=== PATIENT | female | born 1945 ===

== ENCOUNTER 2021-06-03 14:14 | Emergency (ER) | payer MEDICARE ==
[~2021-06-03] VITALS: Ht 165 cm; Wt 72.6 kg
[2021-06-03] MEDS ORDERED: LACTATED RINGERS 1,000 ML IV SCH (14:30)
--- NOTE | 2021-06-03 14:35 | ED General ---
General Stated Complaint: WEAKNESS,DIZZINESS Source of Information: Patient Exam Limitations: No Limitations History of Present Illness Date Seen by Provider: Jun 03, 2021 Time Seen by Provider: 14:14 Initial Comments To ER by [facility] from [facility] where she was out when she developed diarrhea, crampy abdominal pain and lightheadedness. She was helped to the floor by others on scene. No fevers or chills. She has a history of colitis. 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 She denies any pain or fevers. She only had one episode of diarrhea and it was nonbloody. She states that it will probably become bloody with future episodes as it typically does. She does not have any known stenting to the SMA or AUGUSTINE. She is from [facility] and primary care is Dr. Alvarez out of the [facility] in [place]. Timing/Duration: 1-2 Days Severity: Moderate Allergies and Home Medications Allergies Coded Allergies: No Known Drug Allergies (Unverified , 06/03/21) Patient Home Medication List Home Medication List Reviewed: Yes Review of Systems Review of Systems Constitutional: see HPI EENTM: see HPI Respiratory: no symptoms reported Cardiovascular: no symptoms reported Genitourinary: no symptoms reported Musculoskeletal: no symptoms reported Skin: no symptoms reported Psychiatric/Neurological: No Symptoms Reported Hematologic/Lymphatic: No Symptoms Reported Physical Exam Vital Signs Vital Signs - First Documented 06/03/21 14:16 Temp 35.4 Pulse 58 Resp 18 B/P (MAP) 96/62 (73) Pulse Ox 95 O2 Delivery Room Air Capillary Refill : Height, Weight, BMI Height: '" Weight: lbs. oz. kg; BMI Method: General Appearance: No Apparent Distress, WD/WN, Other (Alert and oriented no distress blood pressure 96/62. Abdomen is nontender with hypoactive bowel sounds. When asked if she has abdominal pain she states "it is just a little uneasy".) Eyes: Bilateral Eye Normal Inspection, Bilateral Eye PERRL, Bilateral Eye EOMI Neck: Full Range of Motion, Normal Inspection Respiratory: Lungs Clear, Normal Breath Sounds, No Accessory Muscle Use, No Respiratory Distress Cardiovascular: Regular Rate, Rhythm, Normal Peripheral Pulses Gastrointestinal: Normal Bowel Sounds, Non Tender, Soft Extremity: Normal Capillary Refill, Normal Inspection Neurologic/Psychiatric: Alert, Oriented x3 Skin: Normal Color, Warm/Dry Focused Exam Lactate Level 06/03/21 14:27: Lactic Acid Level 2.16*H Lactic Acid Level Laboratory Tests Test 06/03/21 14:27 Lactic Acid Level 2.16 MMOL/L (0.50-2.00) *H Progress/Results/Core Measures Suspected Sepsis SIRS Temperature: Pulse: Respiratory Rate: Laboratory Tests 06/03/21 14:27: White Blood Count 6.2 Blood Pressure / Mean: 06/03/21 14:27: Lactic Acid Level 2.16*H Laboratory Tests 06/03/21 14:27: Creatinine 1.03, Platelet Count 324, Total Bilirubin 0.6 Results/Orders Lab Results Laboratory Tests Test 06/03/21 14:27 Range/Units White Blood Count 6.2 4.3-11.0 10^3/uL Red Blood Count 4.09 3.80-5.11 10^6/uL Hemoglobin 13.0 11.5-16.0 g/dL Hematocrit 38 35-52 % Mean Corpuscular Volume 94 80-99 fL Mean Corpuscular Hemoglobin 32 25-34 pg Mean Corpuscular Hemoglobin Concent 34 32-36 g/dL Red Cell Distribution Width 12.1 10.0-14.5 % Platelet Count 324 130-400 10^3/uL Mean Platelet Volume 8.5 L 9.0-12.2 fL Immature Granulocyte % (Auto) 0 % Neutrophils (%) (Auto) 59 42-75 % Lymphocytes (%) (Auto) 28 12-44 % Monocytes (%) (Auto) 9 0-12 % Eosinophils (%) (Auto) 3 0-10 % Basophils (%) (Auto) 1 0-10 % Neutrophils # (Auto) 3.7 1.8-7.8 10^3/uL Lymphocytes # (Auto) 1.8 1.0-4.0 10^3/uL Monocytes # (Auto) 0.6 0.0-1.0 10^3/uL Eosinophils # (Auto) 0.2 0.0-0.3 10^3/uL Basophils # (Auto) 0.0 0.0-0.1 10^3/uL Immature Granulocyte # (Auto) 0.0 0.0-0.1 10^3/uL Sodium Level 131 L 135-145 MMOL/L Potassium Level 3.4 L 3.6-5.0 MMOL/L Chloride Level 97 L 98-107 MMOL/L Carbon Dioxide Level 19 L 21-32 MMOL/L Anion Gap 15 H 5-14 MMOL/L Blood Urea Nitrogen 11 7-18 MG/DL Creatinine 1.03 0.60-1.30 MG/DL Estimat Glomerular Filtration Rate 52 BUN/Creatinine Ratio 11 Glucose Level 140 H 70-105 MG/DL Lactic Acid Level 2.16 *H 0.50-2.00 MMOL/L Calcium Level 9.6 8.5-10.1 MG/DL Corrected Calcium 9.4 8.5-10.1 MG/DL Total Bilirubin 0.6 0.1-1.0 MG/DL Aspartate Amino Transf (AST/SGOT) 20 5-34 U/L Alanine Aminotransferase (ALT/SGPT) 18 0-55 U/L Alkaline Phosphatase 81 40-136 U/L Total Protein 6.5 6.4-8.2 GM/DL Albumin 4.2 3.2-4.5 GM/DL My Orders Orders - IRVING KUHN PROCUREMENT TECHNICIAN Cbc With Automated Diff (06/03/21 14:24) Comprehensive Metabolic Panel (06/03/21 14:24) Ua Culture If Indicated (06/03/21 14:24) Ed Iv/Invasive Line Start (06/03/21 14:24) Ct Angio Abdomen/Pelv W (06/03/21 14:24) Lactated Ringers (Lr 1000 Ml Iv Solution (06/03/21 14:30) Lactic Acid Analyzer (06/03/21 14:29) Iohexol Injection (Omnipaque 350 Mg/Ml 1 (06/03/21 15:30) Received Contrast (Hold Metformin- Contr (06/03/21 15:30) Ns (Ivpb) (Sodium Chloride 0.9% Ivpb Bag (06/03/21 15:30) Medications Given in ED Current Medications Medications Dose Ordered Sig/Lissa Route Start Time Stop Time Status Last Admin Dose Admin Iohexol 100 ml ONCE ONCE IV 06/03/21 15:30 06/03/21 15:31 DC 06/03/21 15:47 85 ML Sodium Chloride 100 ml ONCE ONCE IV 06/03/21 15:30 06/03/21 15:31 DC 06/03/21 15:47 80 ML Vital Signs/I&O 06/03/21 14:16 Temp 35.4 Pulse 58 Resp 18 B/P (MAP) 96/62 (73) Pulse Ox 95 O2 Delivery Room Air Capillary Refill : Departure Communication (Admissions) Family Conversation [id number] episodes of loose stool here. Small-volume blood-tinged. is a pharmacist he is at the bedside. He works at [facility]. They live in [facility]. He states that normally she recovers without antibiotic but given the recurrent nature would like to try some antibiotics and this certainly seems reasonable. I'll provide him with a copy of lab work and CT report to follow-up with Dr. Alvarez at the clinic in [place]. We'll empirically treat with Cipro and Flagyl given the recurrent nature of this diarrhea for her. NAME: [facility] REC#: [id number] PT STATUS: REG ER : 1945 PHYSICIAN: IRVING KUHN PROCUREMENT TECHNICIAN ADMIT DATE: 06/03/21/ER Draft Date of Exam:06/03/21 CT ANGIO ABDOMEN/PELV W PROCEDURE: CT Angio Abdomen/Pelvis with. TECHNIQUE: Multiple contiguous axial images were obtained through the abdomen and pelvis after the uneventful bolus administration of intravenous contrast. Sagittal and coronal MIP reconstructions with then performed. All CT scans use one or more of the following dose optimizing techniques: Automated exposure control, MA and/or KvP adjustment based on patient size and exam type or iterative reconstruction. INDICATION: Dizziness, weakness. COMPARISON: There are no prior studies available for comparison. FINDINGS: The aorta is not abnormally dilated, and there is no sign of a dissection. There is no hemodynamically significant stenosis of the major branches of the aorta either. There is no pelvic mass or free fluid collection evident. The uterus and urinary bladder are grossly unremarkable. The appendix was not particularly well visualized, but there are no indirect signs of acute appendicitis. There is some thickening of the small bowel wall. This may be related to incomplete distention. The possibility that there is an element of mild enteritis present should also be considered. The duodenum is also filled with fluid as is the stomach. There is no sign of a mass to suggest a gastric outlet obstruction, however. The liver, spleen, adrenals, gallbladder, kidneys, and inferior vena cava are unremarkable for an acute abnormality. The lung bases are clear. The bone windows show no sign of a fracture or of a destructive lesion. IMPRESSION: 1. There is generalized thickening of the wall of several segments of the small bowel. While this could be secondary to incomplete distention, the possibility that there is an element of enteritis present should still be considered. There is also fluid in the duodenum and stomach, and there is some element of duodenitis/gastritis present as well. 2. There is no acute abnormality of the abdomen or pelvis noted otherwise. 3. There is no sign of an aneurysm of the aorta. Dictated on workstation # [id number] Dict: 06/03/21 1550 Trans: 06/03/21 1622 [id number] Interpreted by: JERMAIN PALOMARES MD Electronically signed by: Impression Primary Impression: Enteritis Disposition: 01 HOME, SELF-CARE Condition: Stable Departure-Patient Inst. Decision time for Depature: 16:27 Patient Instructions: NO INSTRUCTIONS GIVEN Add. Discharge Instructions: 1. Increase fluid intake 2. Return to ER for any concerns Scripts Metronidazole (Flagyl) 500 Mg Tablet 500 MG PO TID, #15 TAB Prov: IRVING KUHN APRN 06/03/21 Ciprofloxacin HCl (Ciprofloxacin HCl) 500 Mg Tablet 500 MG PO BID, #14 TAB Prov: IRVING KUHN APRN 06/03/21 IRVING KUHN APRN Jun 03, 2021 14:35
[2021-06-03 14:44] LABS: WHITE BLOOD COUNT 6.2 10^3/uL (4.3-11.0)
[2021-06-03 14:45] LABS: BASOPHILS % (AUTO) 1 % (0-10); EOSINOPHILS # (AUTO) 0.2 10^3/uL (0.0-0.3); EOSINOPHILS % (AUTO) 3 % (0-10); HEMATOCRIT 38 % (35-52); LYMPHOCYTES # (AUTO) 1.8 10^3/uL (1.0-4.0); LYMPHOCYTES % (AUTO) 28 % (12-44); MEAN CORPUSCULAR HEMOGLOBIN 32 pg (25-34); MEAN CORPUSCULAR HGB CONC 34 g/dL (32-36); MEAN CORPUSCULAR VOLUME 94 fL (80-99); MEAN PLATELET VOLUME 8.5 fL (9.0-12.2); MONOCYTES # (AUTO) 0.6 10^3/uL (0.0-1.0); MONOCYTES % (AUTO) 9 % (0-12); NEUTROPHILS # (AUTO) 3.7 10^3/uL (1.8-7.8); NEUTROPHILS % (AUTO) 59 % (42-75); PLATELET COUNT 324 10^3/uL (130-400)
[2021-06-03 14:55] LABS: ALBUMIN 4.2 GM/DL (3.2-4.5)
[2021-06-03 14:56] LABS: POTASSIUM 3.4 MMOL/L (3.6-5.0)
[2021-06-03 14:57] LABS: CALCIUM 9.6 MG/DL (8.5-10.1)
[2021-06-03 14:58] LABS: TOTAL PROTEIN 6.5 GM/DL (6.4-8.2)
[2021-06-03 15:00] LABS: BILIRUBIN,TOTAL 0.6 MG/DL (0.1-1.0)
[2021-06-03 15:02] LABS: CREATININE SERUM 1.03 MG/DL (0.60-1.30)
[2021-06-03] MEDS ORDERED: HOLD METFORMIN - RECEIVED CONTRAST 20 ML VIAL IV SCH (15:30)
[2021-06-03] MEDS ORDERED: IOHEXOL 350 MG/ML 100 ML (OMNIPAQUE 350) VIAL IV ONE (15:30)
[2021-06-03] MEDS ORDERED: NS 100 ML (IVPB) BAG IV ONE (15:30)
--- NOTE | 2021-06-03 16:23 | Diagnostic Imaging Report ---
PROCEDURE: CT Angio Abdomen/Pelvis with. TECHNIQUE: Multiple contiguous axial images were obtained through the abdomen and pelvis after the uneventful bolus administration of intravenous contrast. Sagittal and coronal MIP reconstructions with then performed. All CT scans use one or more of the following dose optimizing techniques: Automated exposure control, MA and/or KvP adjustment based on patient size and exam type or iterative reconstruction. INDICATION: Dizziness, weakness. COMPARISON: There are no prior studies available for comparison. FINDINGS: The aorta is not abnormally dilated, and there is no sign of a dissection. There is no hemodynamically significant stenosis of the major branches of the aorta either. There is no pelvic mass or free fluid collection evident. The uterus and urinary bladder are grossly unremarkable. The appendix was not particularly well visualized, but there are no indirect signs of acute appendicitis. There is some thickening of the small bowel wall. This may be related to incomplete distention. The possibility that there is an element of mild enteritis present should also be considered. The duodenum is also filled with fluid as is the stomach and there could be an element of duodenitis/gastritis present as well. The liver, spleen, adrenals, gallbladder, kidneys, and inferior vena cava are unremarkable for an acute abnormality. The lung bases are clear. The bone windows show no sign of a fracture or of a destructive lesion. IMPRESSION: 1. There is generalized thickening of the wall of several segments of the small bowel. While this could be secondary to incomplete distention, the possibility that there is an element of enteritis present should still be considered. There is also fluid in the duodenum and stomach, and there may be an element of duodenitis/gastritis present as well. 2. There is no acute abnormality of the abdomen or pelvis noted otherwise. 3. There is no sign of an aneurysm of the aorta. Dictated by: Dictated on workstation # [id number]
[2021-06-03] MEDS ORDERED: CIPR500T5 PO (16:34)
[2021-06-03] MEDS ORDERED: METR500T PO (16:34)
[2021-06-03] MEDS ORDERED: CIPROFLOXACIN 500 MG (CIPRO) TABLET PO SCH (16:45)
[2021-06-03] MEDS ORDERED: HYOSCYAMINE 0.125 MG (LEVSIN) TAB PO ONE (16:45)
[2021-06-03] MEDS ORDERED: metroNIDAZOLE 250 MG (FLAGYL) TAB PO ONE (16:45)
[2021-06-03 16:55] VITALS: BP 97/43
[2021-06-03] MEDS ORDERED: metroNIDAZOLE 500 MG (FLAGYL) TAB ONE (16:56)
== END 2021-06-03 16:55 | disposition home or self-care (01) ==
LOC: ER 14:18
DX: K52.9 Noninfective gastroenteritis and colitis, unspecified (principal); Z87.891 Personal history of nicotine dependence
CPT/HCPCS: 36415; 74174; 80053; 83605; 85025